=== PATIENT | female | born 1950 ===

== ENCOUNTER 2021-02-26 10:15 | Inpatient (IN) | payer OTHER ==
[~2021-02-26] VITALS: Ht 160 cm; Wt 54.9 kg
[2021-02-26] MEDS ORDERED: COZAAR25 MG PO (12:32)
[2021-02-26] MEDS ORDERED: SYNTHROID75 MCG PO (12:32)
[2021-02-26] MEDS ORDERED: SIMVASTA PO (12:33)
[2021-03-03] MEDS ORDERED: PERCOCET 5-3251 EACH PO (09:52)
[2021-03-03] MEDS ORDERED: NEURONTIN800 MG PO (09:52)
[2021-03-03] MEDS ORDERED: AMOX-CLAV 875-1 EACH PO (09:52)
[2021-03-03] MEDS ORDERED: DIAZEPAM5 MG PO (09:52)
[2021-03-03] MEDS ORDERED: COLACE100 MG PO (09:52)
[2021-03-03] MEDS ORDERED: MEDROLPACK PO (09:52)
[2021-03-04] MEDS ORDERED: BENADRYL25 MG PO (14:44)
== END 2021-03-04 16:54 | DRG 455 ==
LOC: O/R 03-03 06:19 → PED 03-03 06:19 → SURH 03-03 10:15 → PED 03-03 15:33
PROVIDERS: ADMIT Orthopaedic Surgery Orthopaedic Surgery of the Spine; ATTEND Orthopaedic Surgery Orthopaedic Surgery of the Spine
PROC: 0SG00J1 Fusion of Lumbar Vertebral Joint with Synthetic Substitute, Posterior Approach, Posterior Column, Open Approach (ICD-10-PCS; 2021-03-03)
PROC: 0QB30ZZ Excision of Left Pelvic Bone, Open Approach (ICD-10-PCS; 2021-03-03)
PROC: 07DR3ZZ Extraction of Iliac Bone Marrow, Percutaneous Approach (ICD-10-PCS; 2021-03-03)
PROC: XRGB0F3 Fusion of Lumbar Vertebral Joint using Radiolucent Porous Interbody Fusion Device, Open Approach, New Technology Group 3 (ICD-10-PCS; principal; 2021-03-03 10:30)
DX: M43.16 Spondylolisthesis, lumbar region (principal); M48.062 Spinal stenosis, lumbar region with neurogenic claudication